=== PATIENT | female | born 1975 | race Caucasian/White ===

== ENCOUNTER 2017-03-25 19:40 | Inpatient (IN) | payer OTHER ==
[~2017-03-25] VITALS: Ht 160 cm; Wt 71.6 kg
[2017-03-25 20:27] LABS: BASOPHILS # (AUTO) 0.06 K/uL (0.00-0.20); BASOPHILS % (AUTO) 1.1 % (0.0-2.0); EOSINOPHILS # (AUTO) 0.16 K/uL (0.00-0.70); EOSINOPHILS % (AUTO) 2.96 % (1.0-6.0); HEMATOCRIT 43.7 % (36-46); HEMOGLOBIN 14.6 g/dL (12.0-16.0); LYMPHOCYTES # (AUTO) 1.9 K/uL (1.0-4.8); LYMPHOCYTES % (AUTO) 34.3 % (22.0-44.0); MEAN CORPUSCULAR HEMOGLOBIN 33.6 pg (26.0-34.0); MEAN CORPUSCULAR HGB CONC 33.4 G/dL (31.0-37.0); MEAN CORPUSCULAR VOLUME 100 fL (80-100); MONOCYTES # (AUTO) 0.3 K/uL (0.1-1.0); MONOCYTES % (AUTO) 4.8 % (2.0-9.0); NEUTROPHILS # (AUTO) 3.2 K/uL (1.8-7.7); NEUTROPHILS % (AUTO) 56.9 % (40.0-70.0); PLATELET COUNT (AUTO) 315 K/uL (150-450); RED BLOOD CELL COUNT(AUTO) 4.35 MIL/uL (4.00-5.20); RED CELL DISTRIBUTION WIDTH 13.3 % (11.5-14.5); WHITE BLOOD COUNT (AUTO) 5.5 K/uL (4.5-11.0)
[2017-03-25 20:28] LABS: ANION GAP 14 mmol/L (8-16); CARBON DIOXIDE 22 mmol/L (22-29); CHLORIDE 105 mmol/L (98-107); CREATININE 0.68 mg/dL (0.60-1.30); GLOMERULAR FILTR. RATE CALC > 60 mL/min (>60); POTASSIUM 3.6 mmol/L (3.5-5.1); SODIUM SERUM 141 mmol/L (136-145); UREA NITROGEN, BLOOD 8 mg/dL (7-18)
[2017-03-25] MEDS ORDERED: LORazepam 2 MG TABLET PO PRN (20:30)
[2017-03-25] MEDS ORDERED: HALOPERIDOL 5 MG TABLET PO PRN (20:30)
[2017-03-25] MEDS ORDERED: PROMETHAZINE HCL 25 MG TABLET PO PRN (20:30)
[2017-03-25 20:32] LABS: ALANINE AMINOTRANSFERASE 95 U/L (12-78); ALBUMIN 3.8 g/dL (3.4-5.0); ASPARTATE AMINOTRANSFERASE 90 U/L (15-37); BILIRUBIN,TOTAL 0.3 mg/dL (0.1-1.0); TOTAL PROTEIN, SERUM 7.9 g/dL (6.4-8.2)
[2017-03-25 21:39] LABS: RBC MORPHOLOGY COMMENT ABNORMAL RBC MORPH
[2017-03-26 01:22] LABS: GLUCOSE, URINE (UA) NEGATIVE (NEGATIVE); KETONES,URINE NEGATIVE (NEGATIVE); LEUKOCYTE ESTERASE ,URINE SMALL (NEGATIVE); OCCULT BLOOD,URINE TRACE (NEGATIVE); PROTEIN,URINE NEGATIVE (NEGATIVE)
[2017-03-26 01:23] LABS: ADD UA MICROSCOPIC YES; APPEARANCE,URINE HAZY (CLEAR)
[2017-03-26 03:16] VITALS: BP 110/78
[2017-03-26 03:25] LABS: RBC,URINE 0-2 /HPF (0-2); SQUAMOUS EPITHELIAL CELL,UR Few /LPF (None Seen)
[2017-03-26 08:11] VITALS: BP 121/77
[2017-03-26] MEDS ORDERED: ACETAMINOPHEN 325 MG TABLET PO PRN (14:30)
[2017-03-26] MEDS ORDERED: IBUPROFEN 400 MG TABLET PO PRN (14:30)
[2017-03-26] MEDS: FLUTICASONE PROPIONATE 50 MCG/SPRAY 16 GM NASAL SPRAY NASAL SCH (20:23)
[2017-03-26 22:03] VITALS: BP 122/74
[2017-03-27] MEDS: FLUoxetine HCL 20 MG CAPSULE PO SCH (08:22)
[2017-03-27 08:48] VITALS: BP 134/79
[2017-03-27 17:00] VITALS: BP 123/92
[2017-03-27] MEDS: FLUTICASONE PROPIONATE 50 MCG/SPRAY 16 GM NASAL SPRAY NASAL SCH (21:23)
[2017-03-28] MEDS: FLUoxetine HCL 20 MG CAPSULE PO SCH (09:00)
[2017-03-28] MEDS ORDERED: FLUO-191 PO (13:08)
[2017-03-28] MEDS ORDERED: FLUT16H NASAL (13:09)
== END 2017-03-28 15:00 | disposition home or self-care (01) | DRG 885 ==
LOC: EMS 19:42 → 3EX 22:37 → 3EI 03-27 20:46
PROVIDERS: ADMIT Psychiatry & Neurology Psychiatry; ATTEND Psychiatry & Neurology Psychiatry
DX: F33.2 Major depressive disorder, recurrent severe without psychotic features (principal); R45.851 Suicidal ideations; Z91.19 Patient's noncompliance with other medical treatment and regimen; F10.10 Alcohol abuse, uncomplicated; J30.9 Allergic rhinitis, unspecified; Y92.89 Other specified places as the place of occurrence of the external cause; Z86.32 Personal history of gestational diabetes; Z91.5 Personal history of self-harm
CPT/HCPCS: 99285; G0480